=== PATIENT | female | born 1960 | race Caucasian/White ===

== ENCOUNTER 2017-04-23 04:53 | Inpatient (IN) | payer OTHER, BC ==
[2017-03-21 13:58] VITALS: BMI 36.0
--- NOTE | 2017-03-21 14:44 | PAT Medication Instructions ---
Service Date Mar 21, 2017. Current Home Medication List Cetirizine (Zyrtec), 10 MG PO HS Levothyroxine Sodium (Synthroid), 100 MCG PO QAM Loratadine (Claritin), 10 MG PO QAM Omeprazole (Omeprazole), 1 TAB PO QAM Oxymetazoline Hcl (Nasal [place]), Unknown Dose BAILEY UD PRN for PRN Potassium Ext Rel (Klor-Con), 20 MEQ PO BID Medication Instructions For Your Scheduled Surgery - Hold the following medications the morning of surgery: Loratadine (Claritin), 10 MG PO QAM Potassium Ext Rel (Klor-Con), 20 MEQ PO BID - Take the following medications the morning of surgery with a sip of water: Omeprazole (Omeprazole), 1 TAB PO QAM Levothyroxine Sodium (Synthroid), 100 MCG PO QAM Oxymetazoline Hcl (Nasal [place]), Unknown Dose BAILEY UD PRN for PRN - Take the following medications as scheduled the night before surgery: Cetirizine (Zyrtec), 10 MG PO HS Potassium Ext Rel (Klor-Con), 20 MEQ PO BID If you have any questions please call us at [phone] or [phone] or [phone]
--- NOTE | 2017-03-21 15:42 | DIAGNOSTIC IMAGING REPORT ---
CHEST PREADMISSION(PA/LAT) CLINICAL HISTORY: Preoperative evaluation. COMPARISON STUDY: No previous studies for comparison. FINDINGS: Abdominal surgical clips are noted. There is no pneumothorax or pleural effusion. Pulmonary vascularity is normal. Lung volumes are at the lower limits of normal. There is no consolidation to suggest pneumonia. Mild to moderate cardiomegaly is noted. IMPRESSION: 1. No acute cardiopulmonary findings. 2. Mild to moderate cardiomegaly. Electronically signed by: Carmelo Lopez M.D. 03/21/2017 3:40 PM Dictated Date/Time: 03/21/2017 3:40 PM
[2017-03-21 16:01] LABS: BASO % 0.6 %; BASO ABS # 0.06 K/uL (0-0.2); COMPLETE YES; EOS % 3.1 %; HEMATOCRIT 41.5 % (37-47); IG% 0.4 %; LYMPH % 34.4 %; LYMPH ABS # 3.19 K/uL (1.2-3.4); MEAN CELL VOLUME 91.8 fL (80-100); MEAN CORPUSCULAR HEMOGLOBIN 30.8 pg (25-34); MEAN CORPUSCULAR HGB CONC 33.5 g/dl (32-36); MEAN PLATELET VOLUME 10.1 fL (7.4-10.4); NEUT % 54.5 %; PLATELET COUNT 315 K/uL (130-400); RED BLOOD COUNT 4.52 M/uL (4.2-5.4); WHITE BLOOD COUNT 9.28 K/uL (4.8-10.8)
[2017-03-21 16:20] LABS: URINE APPEARANCE CLEAR (CLEAR); URINE BILIRUBIN NEG (NEG); URINE COLOR YELLOW; URINE NITRITE NEG (NEG); URINE PH 5.5 (4.5-7.5); URINE SPECIFIC GRAVITY 1.019 (1.000-1.030); UROBILINOGEN NEG (NEG); ZZUR CULT IF INDIC CLEAN CATCH NO
[2017-03-21 16:21] LABS: MANUAL MICROSCOPIC REQUIRED? NO; REVIEW REQ? NO
[2017-03-21 16:22] LABS: INR 0.9 (0.9-1.1); PARTIAL THROMBOPLASTIN RATIO 1.1; PROTHROMBIN TIME (PATIENT) 9.8 SECONDS (9.0-12.0)
[2017-03-21 16:24] LABS: BUN/CREATININE RATIO 11.9 (10-20); CREATININE 0.93 mg/dl (0.60-1.20); POTASSIUM 4.3 mmol/L (3.5-5.1)
[2017-03-22 08:23] LABS: ESTIMATED AVERAGE GLUCOSE 111 mg/dl; HA1C FLAG Normal (Normal)
--- NOTE | 2017-04-22 18:54 | HISTORY & PHYSICAL EXAMINATION ---
DATE OF ADMISSION: 04/23/2017 CHIEF COMPLAINT: Chronic right knee pain. HISTORY OF PRESENT ILLNESS: This is a 56-year-old female patient of Dr. Garcia who underwent a right total knee replacement in the recent past. AUTHOR CANCELS THIS DICTATION.
--- NOTE | 2017-04-22 18:57 | HISTORY & PHYSICAL EXAMINATION ---
DATE OF ADMISSION: 04/23/2017 CHIEF COMPLAINT: Bilateral knee pain. HISTORY OF PRESENT ILLNESS: This is a 56-year-old female patient of Dr. Quezada'carol complaining of bilateral knee pain, longstanding, now progressively getting worse. The patient has been diagnosed with end-stage osteoarthritis in both knees. Specifically, with a right knee which is worse. She has tried intraarticular injections, physical therapy, home exercise program, anti-inflammatories and the use of a brace. The patient has increased pain with weightbearing activities in her right knee and the pain does interfere with her activities of daily living. PAST MEDICAL HISTORY: Hypothyroidism, osteoarthritis, acid reflux, and obesity. SOCIAL HISTORY: Nonsmoker, nondrinker. FAMILY HISTORY: Noncontributory. REVIEW OF SYSTEMS: Bilateral knee pain, otherwise denies any shortness of breath, chest pain, nausea, vomiting or any other joint complaints. PAST SURGICAL HISTORY: Gallbladder, appendectomy, exploratory laparoscopy, tubal ligation, and left knee surgery. ALLERGIES: INCLUDE LATEX, PENICILLIN, AZITHROMYCIN AND APPLES. MEDICATIONS: Include: 1. Loratadine 10 mg daily. 2. Cetirizine 10 mg daily. 3. Potassium chloride 20 mEq 2 times a day. 4. Omeprazole 20 mg daily. 5. Levothyroxine 100 mcg daily. PHYSICAL EXAMINATION: GENERAL: Well-developed, well-nourished 56-year-old female in no acute distress. She is alert and oriented x3 and pleasant. HEENT: Normocephalic, atraumatic. Extraocular motions are intact. Pupils were equal and reactive to light. HEART: Regular rate and rhythm, no murmurs appreciated. LUNGS: Clear. ABDOMEN: Soft and nontender, bowel sounds are present. EXTREMITIES: Right knee reveals crepitation with passive range of motion. She has a limited range of motion of 0-120 degrees with a varus deformity. She has a positive effusion in the right knee. She has 5/5 strength. NEUROLOGIC: Neurovascularly, she is intact in her right lower extremity. Left knee reveals medial joint line tenderness with no effusion. DIAGNOSES: 1. Right knee end-stage osteoarthritis. 2. Left knee arthritis. 3. Hypothyroidism. 4. Acid reflux. 5. Obesity. PLAN: The patient was advised of her diagnosis. Indications, risks, benefits, and postop course have all been reviewed. The patient wishes to proceed with a right total knee arthroplasty and a left knee intraarticular injection. Necessary consent forms, preoperative testing and clearances will be obtained.
[2017-04-23] VITALS (9 sets, daily range): BP systolic 116–162; BP diastolic 69–112; PULSE 87–95; TEMP 36.6–36.9; O2SAT 93–97; Ht 165.1 cm; Wt 99.8 kg
[~2017-04-23] VITALS: Ht 165.1 cm; Wt 99.8 kg
[~2017-04-23 04:53] MED LIST: CETI10TA84 PO; CLR10 PO; LEVO100T PO; OMEP20TA PO; OXYM0.0592 NAE; POTA20TA16 PO
[2017-04-23] MEDS ORDERED: FAMOTIDINE 20 MG TAB PO SCH (06:00)
[2017-04-23] MEDS ORDERED: DEXAMETHASONE 4 MG TAB PO SCH (06:00)
[2017-04-23] MEDS ORDERED: LACTATED RINGER'S 1000ML 1,000 ML IV SCH (06:00)
[2017-04-23] MEDS ORDERED: LACTATED RINGER'S 1000ML 500 ML IV ONE (06:00)
[2017-04-23] MEDS ORDERED: VANCOMYCIN INJ 1,500 MG in SODIUM CHLORIDE 0.9% 500ML 500 ML IV SCH ×2 (06:00→18:00)
[2017-04-23] MEDS ORDERED: LACTATED RINGER'S 1000ML IV SCH (06:00)
[2017-04-23] MEDS ORDERED: METOCLOPRAMIDE HCL 10 MG TAB PO SCH (06:00)
[2017-04-23] MEDS ORDERED: ROPIVACAINE 5MG/ML 30 ML 150 MG, BUPIVACAINE/EPINEPHR 0.5% MPF 30 ML, KETOROLAC TROMETH... INFIL SCH ×7 (06:00)
[2017-04-23] MEDS ORDERED: CeleBREX 200 MG CAP PO SCH (06:00)
[2017-04-23] MEDS ORDERED: VANCOMYCIN 1GM/270ML NSS 270 ML IV SCH (06:00)
[2017-04-23] MEDS ORDERED: ACETAMINOPHEN 500 MG TAB PO SCH (06:00)
[2017-04-23] MEDS ORDERED: GABAPENTIN 300 MG CAP PO SCH (06:00)
[2017-04-23] MEDS ORDERED: ACET-1311 PO (06:17)
[2017-04-23] MEDS ORDERED: MIDAZOLAM HCL 1 MG/ML 2ML VIAL ONE ×2 (06:18→07:19)
[2017-04-23] MEDS ORDERED: PROPOFOL IV EMULSION 10 MG/ML 20 ML VIAL IV ONE ×3 (06:18→08:21)
[2017-04-23] MEDS ORDERED: LIDOCAINE HCL 2% 2 ML VIAL (20MG/ML) ONE (06:18)
[2017-04-23] MEDS ORDERED: FENTANYL CITRATE INJ 50 MCG/1 ML 2 ML VIAL ONE (06:18)
[2017-04-23] MEDS ORDERED: DIPH25CA65 PO (06:18)
[2017-04-23] MEDS ORDERED: BUPIVACAINE 0.5 % 5 MG/1 ML PF 10ML VIAL ONE (06:20)
[2017-04-23] MEDS ORDERED: ROPIVACAINE 0.5% 5 MG/ML 30 ML VIAL ONE (06:20)
[2017-04-23] MEDS: TRANEXAMIC ACID INJ 1,000 MG in SODIUM CHLORIDE 0.9% 100ML 100 ML IV SCH ×2 (06:30→07:02)
[2017-04-23] MEDS ORDERED: ORTHO JOINT ANESTHETIC ONE (06:45)
[2017-04-23] MEDS ORDERED: BACITRACIN 50000 UNIT VIAL ONE (06:45)
[2017-04-23] MEDS ORDERED: BUPIVACAINE 0.25% 30 ML VIAL ONE (07:03)
[2017-04-23] MEDS ORDERED: METHYLPREDNISOLONE ACETATE 80 MG/ML VIAL ONE (07:03)
--- NOTE | 2017-04-23 07:10 | History & Physical Bridge Note ---
H&P Re-Evaluation Bridge Note: I have examined the patient, reviewed the History & Physical and in the interval since the performance of the History & Physical I have noted the following changes of clinical significance: No changes noted
[2017-04-23] MEDS ORDERED: ONDANSETRON INJ 2 MG/ML 2 ML VIAL ONE (07:47)
[2017-04-23] MEDS ORDERED: HYDROmorphone INJ 2 MG/ML SYR/VIAL IV PRN (08:00)
[2017-04-23] MEDS ORDERED: ONDANSETRON INJ 2 MG/ML 2 ML VIAL IV PRN ×2 (08:00→09:15)
[2017-04-23] MEDS ORDERED: EpHEDrine SULFATE INJ 50 MG/ML AMP IV PRN (08:00)
[2017-04-23] MEDS ORDERED: ATROPINE SULFATE 0.1 MG/ML 5ML SYR IV PRN (08:00)
[2017-04-23] MEDS ORDERED: PHENYLEPHRINE 100MCG/ML 5ML SYR IV PRN (08:00)
[2017-04-23] MEDS ORDERED: EpHEDrine SULFATE INJ 50 MG/ML AMP ONE (08:08)
[2017-04-23] MEDS: POVIDONE-IODINE OP SOLN 30 ML BTL ONE ×2 (08:30→08:32)
--- NOTE | 2017-04-23 09:00 | [facility] Post Operative Brief Note ---
Immediate Operative Summary Operative Date Apr 23, 2017. Pre-Operative Diagnosis Right Knee End-Stage Osteoarthritis; Left Knee Arthritis Post-Operative Diagnosis Same as preoperative Procedure(s) Performed Right Total Knee Arthroplasty; Left Knee Injection Surgeon Dr. Jean Claude Quezada Real Estate Coordinator Surgeon(s) Chaitanya Ibarra PA-C Estimated Blood Loss 5ml Findings grade 4 djd oa medial compartment and patella varus Specimens A.) Right Knee Bone and Tissue Drains 2 hemovac Anesthesia spinal adductor block orthomix Complication(s) None Disposition Recovery Room / PACU
[2017-04-23] MEDS ORDERED: MAGNESIUM HYDROXIDE SUSP 30 ML UDC PO PRN (09:15)
[2017-04-23] MEDS ORDERED: MoRPHine SULFATE 2 MG/ML CARP IV PRN (09:15)
[2017-04-23] MEDS ORDERED: ZOLPIDEM TARTRATE 5 MG TAB PO PRN (09:15)
[2017-04-23] MEDS ORDERED: BISACODYL 10 MG SUPP PR PRN (09:15)
[2017-04-23] MEDS ORDERED: SOD PHOSPHATE/SOD BIPHOSPHATE ENEMA 132 ML BTL PR PRN (09:15)
--- NOTE | 2017-04-23 09:52 | DIAGNOSTIC IMAGING REPORT ---
RIGHT KNEE 2 VIEWS History: Right total knee arthroplasty. Degenerative arthritis. Postop. FINDINGS: The patient is status post a right total knee arthroplasty. The hardware is intact. No fracture or dislocation. Skin dimitri and surgical drains are in place. IMPRESSION: Right total knee arthroplasty. No evidence for hardware complication. Electronically signed by: Simone Sainz M.D. 04/23/2017 9:51 AM Dictated Date/Time: 04/23/2017 9:50 AM
--- NOTE | 2017-04-23 10:34 | Anesthesiology Progress Note ---
Anesthesia Post Op Note Date & Time Apr 23, 2017 at 10:33 Vital Signs Pain Intensity: 0 Vital Signs Past 12 Hours Date Time Temp Pulse Resp B/P (MAP) Pulse Ox O2 Delivery O2 Flow Rate FiO2 04/23/17 10:15 88 18 04/23/17 10:15 87 18 119/69 100 04/23/17 10:10 90 20 04/23/17 10:10 90 20 100 04/23/17 10:05 85 18 100 04/23/17 10:05 86 18 04/23/17 10:04 86 18 99 04/23/17 10:04 86 18 04/23/17 10:00 132/71 04/23/17 09:59 86 18 04/23/17 09:59 85 18 100 04/23/17 09:56 36.4 04/23/17 09:55 129/72 04/23/17 09:54 88 19 04/23/17 09:54 88 19 100 04/23/17 09:53 84 20 04/23/17 09:53 84 20 100 04/23/17 09:50 136/73 04/23/17 09:48 83 16 04/23/17 09:48 83 16 99 04/23/17 09:47 84 15 04/23/17 09:47 83 15 100 04/23/17 09:45 131/71 04/23/17 09:42 86 21 04/23/17 09:42 86 21 100 04/23/17 09:40 126/75 04/23/17 09:37 88 22 04/23/17 09:37 88 22 99 04/23/17 09:36 89 21 98 04/23/17 09:36 88 21 04/23/17 09:35 123/71 04/23/17 09:31 86 18 97 04/23/17 09:31 86 18 04/23/17 09:30 125/72 04/23/17 09:27 91 20 04/23/17 09:27 89 20 100 04/23/17 09:25 120/74 04/23/17 09:22 84 17 100 04/23/17 09:22 85 17 04/23/17 09:20 124/72 04/23/17 09:17 85 16 100 04/23/17 09:17 86 16 04/23/17 09:15 118/64 04/23/17 09:12 91 16 04/23/17 09:12 91 16 97/69 100 04/23/17 09:12 37.3 86 20 97/69 100 Oxymask 10 04/23/17 05:35 36.9 87 20 162/112 97 Room Air Notes Mental Status: alert / awake / arousable, participated in evaluation Pt Amnestic to Procedure: Yes Nausea / Vomiting: adequately controlled Pain: adequately controlled Airway Patency, RR, SpO2: stable & adequate BP & HR: stable & adequate Hydration State: stable & adequate Anesthetic Complications: no major complications apparent
--- NOTE | 2017-04-23 11:33 | OPERATIVE REPORT ---
DATE OF OPERATION: 04/23/2017 INDICATION FOR PROCEDURE: The patient is a 56-year-old female with chronic bilateral knee pain. The x-rays demonstrate she has bilateral knee osteoarthritis. She is close to bone on bone medial compartment in the both knees. She also has multiple loose bodies, right anterior lateral knee area. PREOPERATIVE DIAGNOSES: End-stage osteoarthritis, right knee with multiple loose bodies and end-stage osteoarthritis, left knee. POSTOPERATIVE DIAGNOSES: Same. PROCEDURES: Right total knee arthroplasty, excision multiple loose bodies, and left knee injections, steroids. SURGEON: Dr. Quezada. BIOMEDICAL SCIENTIST: DENTON Kelly. ANESTHESIA: Spinal, adductor nerve block and Orthomix. OPERATIVE PROCEDURE: The patient was taken to the operating room, anesthetized under spinal and regional block anesthetic. She was placed supine on the operating room table. Pneumatic tourniquet was placed on right upper thigh. Right lower extremity was prepped and draped in sterile fashion. She did not have any pseudolaxity with valgus stress and range of motion was 0-125 degrees. Right lower extremity was prepped and draped in usual sterile fashion. Left leg was elevated, exsanguinated with Esmarch bandage. Pneumatic tourniquet was raised to 325 mmHg. Anterior incision made across the right knee. Skin was incised sharply. Subcutaneous flaps were elevated. Incision was made through the medial retinaculum and carried up into the mid third of the quadriceps tendon and extended down to the medial tibial tubercle. Intra-articular findings demonstrated that she had some tricompartmental DJD, mainly medial compartment. She had [id number] in the anterior medial joint, femoral condyle and tibia. She had multiple loose bodies anterior to the lateral meniscus. Patella also had a grade 4 DJD along the whole medial facet extending into the central patellar area. To expose the knee, I excised the infrapatellar fat pad, some of the fat pad over the anterior femur for placement of the component in that area. I excised the cruciate ligaments, the meniscal remnants. She had fairly balanced knee, so we did not have to do any specific releases. The [employer] 2.0, total knee arthroplasty system was used using [employer] MRI templating. She was sized for a 4 femur, 3 tibia. The custom femoral cutting block was pinned in position and the distal femoral cut was made. Then the 5-in-1 cutting block was placed to a size 4 femur. Anterior, posterior and chamfer cuts were made. The knee was extended and a subperiosteal peel lateral release was performed around the patella. Patella width was measured and width was reproduced using a freehand cut technique and a 32 domed patellar component. Drill holes were made in the excess lateral facet was beveled off to prevent any impingement. The tibia was then subluxed and then the custom tibial cutting block was pinned in position and the proximal tibial cut was made. We assessed ligaments balance. We balanced in extension and flexion. The tibia was re-exposed and the trial 3 tibia was externally rotated in line with the tibial tubercle, pinned in position. The punch for the stem was used and then the 4 femoral trial was inserted, centered and the notch cutting devices were used, the collet was placed and then an 11 trial insert gave balanced ligaments through full range of motion, patella tracked centrally. Trials were removed. The anesthetic cocktail was injected per protocol. The knee was copiously irrigated with pulsatile lavage antibiotic solution and bacitracin. The final components were cemented with Simplex G cement. The final components were the 4 Oxinium posterior stabilized right femur. The 3 tibia and the 11 mm posterior stabilized high flex poly insert and a 32 patella. While the cement was curing, we did a Betadine soak protocol. Then the knee was copiously irrigated. Two drains were brought out laterally. The quadriceps tendon and medial retinaculum were closed with interrupted [id number] #1 Vicryl sutures. Subcutaneous tissues were closed with an interrupted 2-0 Vicryl sutures, skin closed with dimitri. Sterile dressings applied and the patient tolerated the procedure well. Prior to the knee replacement, we did inject left knee with 80 mg Depo-Medrol and 3 mL of Marcaine. DENTON Kelly was my heel sprayer first and he functioned as first beater through the entire procedure. He assisted in patient positioning, prepping, draping, leg positioning, soft tissue retraction, and performed the fascial, subcutaneous and skin closure and will participate in the postoperative care of the patient. I attest to the content of the Intraoperative Record and any orders documented therein. Any exception s are noted below.
[2017-04-23] MEDS ORDERED: MoRPHine SULFATE 4 MG/ML 1 ML CARP\\VIAL IV PRN (11:45)
--- NOTE | 2017-04-23 11:56 | Medical Consult ---
Consultation Date of Consultation: Apr 23, 2017. Attending Physician: Jean Claude Quezada M.D. Reason for Consultation: Post-op medical management History of Present Illness This is a 56yo F with a PMH of hypothyroidism and osteoarthritis who is POD#0 s/ p R total knee arthroplasty and L knee injection by Dr. Quezada. Patient has history of end-stage OA in her R knee and has failed conservative treatment measures such as PT, a brace, intraarticular injections and anti- inflammatories. Has less severe OA of the L knee, so pain is being managed with joint injections at this time. Patient is doing well post-operatively. Denies any fever, chills, lightheadedness, visual changes, CP, dyspnea, SOB, nausea, vomiting, calf pain or LE swelling. Denies any pain in R knee presently. Past Medical/Surgical History Medical Problems: (1) Allergic rhinitis Status: Chronic (2) GERD (gastroesophageal reflux disease) Status: Chronic (3) H/O tear of meniscus of knee joint Permanent Comment: Left s/p repair Status: Chronic (4) History of hypokalemia Status: Chronic (5) Hypothyroidism Status: Chronic (6) Left knee DJD Status: Chronic (7) Right knee DJD Status: Chronic Surgical Problems: (1) Hx of appendectomy Status: Chronic (2) Hx of cholecystectomy Status: Chronic (3) Hx of exploratory laparotomy Status: Chronic (4) Hx of tubal ligation Status: Chronic Family History FH: heart disease MOTHER Social History Smoking Status: Never Smoker Alcohol Use: occasionally (Endorses 1 glass of wine/month ) Marital Status: Housing Status: lives with family Occupation Status: employed Allergies Coded Allergies: Penicillins (Verified Allergy, Severe, "cant breathe", 04/23/17) Apple (Verified Allergy, Unknown, HIVES, 04/23/17) Azithromycin (Verified Allergy, Unknown, HIVES, 04/23/17) Dairy (Verified Allergy, Unknown, GI UPSET, DIZZY, 04/23/17) MILK, YOGURT, ICE CREAM Latex1 -Allergic Contact Dermititis (Verified Allergy, Unknown, RASH, 05/30) Uncoded Allergies: BANDAIDS (Allergy, Unknown, RED RING AROUND WHERE IT WAS, 03/21/17) Home Medications Reported Home Medications Medications Dose Route/Sig Max Daily Dose Days Date Category Benadryl Allergy (Diphenhydramine Hcl) 25 Mg Cap 25 Mg PO PRN 30 04/23/17 Reported Tylenol (Acetaminophen) 325 Mg Tab 650 Mg PO 04/23/17 Reported Nasal [place] (Oxymetazoline Hcl) Unknown Strength Spr 2 Sprays BAILEY BID PRN 03/21/17 Reported Synthroid (Levothyroxine Sodium) 100 Mcg Tab 100 Mcg PO QAM 03/21/17 Reported Omeprazole 20 Mg Tab 1 Tab PO QAM 90 03/21/17 Reported Klor-Con (Potassium Chloride) 20 Meq Tabcr 20 Meq PO BID 03/21/17 Reported Current Inpatient Medications Current Inpatient Medications Medications (Trade) Dose Ordered Sig/Luna Route Start Time Stop Time Status Last Admin Dose Admin Acetaminophen (Tylenol Tab) 1,000 mg PREOP PO 04/23/17 06:00 04/23/17 18:00 04/23/17 06:06 1,000 MG Celecoxib (CeleBREX CAP) 200 mg PREOP PO 04/23/17 06:00 04/23/17 18:00 04/23/17 06:04 200 MG Dexamethasone (Decadron Tab) 8 mg PREOP PO 04/23/17 06:00 04/23/17 18:00 04/23/17 06:05 8 MG Famotidine (Pepcid Tab) 20 mg PREOP PO 04/23/17 06:00 04/23/17 18:00 04/23/17 06:05 20 MG Gabapentin (Neurontin Cap) 600 mg PREOP PO 04/23/17 06:00 04/23/17 18:00 04/23/17 06:05 600 MG Metoclopramide HCl (Reglan Tab) 10 mg PREOP PO 04/23/17 06:00 04/23/17 18:00 04/23/17 06:06 10 MG Tranexamic Acid 1000 mg/Sodium Chloride 110 ml @ 660 mls/hr TODAY@06,0630 IV 04/23/17 06:00 04/23/17 18:00 04/23/17 07:02 660 MLS/HR Vancomycin HCl 1500 mg/Sodium Chloride 530 ml @ 200 mls/hr PREOP IV 04/23/17 06:00 04/23/17 18:00 04/23/17 06:00 200 MLS/HR Hydromorphone HCl (Dilaudid Inj) 0.5 mg Q5M PRN IV 04/23/17 08:00 04/23/17 13:00 Ondansetron HCl (Zofran Inj) 4 mg ONE PRN IV 04/23/17 08:00 04/23/17 13:00 Ephedrine Sulfate (EpHEDrine SULFATE INJ) 5 mg Q5M PRN IV 04/23/17 08:00 04/23/17 13:00 Atropine Sulfate (Atropine Sulfate 0.1MG/Ml Inj) 0.5 mg Q1M PRN IV 04/23/17 08:00 04/23/17 13:00 Phenylephrine HCl (Kevin-Synephrine 500MCG/5ML Syr) 100 mcg Q5M PRN IV 04/23/17 08:00 04/23/17 13:00 Cetirizine HCl (zyrTEC TAB) 10 mg HS PO 04/23/17 21:00 05/23/17 20:59 Levothyroxine Sodium (Synthroid Tab) 100 mcg DAILYBB PO 04/24/17 06:00 05/24/17 05:59 Potassium Chloride (Klor-Con Tab) 20 meq BID PO 04/23/17 21:00 05/23/17 20:59 Potassium Chloride/Dextrose/ Sod Cl 1,000 ml @ 100 mls/hr Q10H IV 04/23/17 12:00 04/24/17 09:09 Vancomycin HCl 1500 mg/Sodium Chloride 530 ml @ 200 mls/hr Q12H IV 04/23/17 18:00 04/23/17 20:38 Celecoxib (CeleBREX CAP) 200 mg BID PO 04/23/17 21:00 05/23/17 20:59 Oxycodone HCl (Roxicodone Immediate Rel Tab) 1 TABLET FOR PAIN RATING... Q4H PRN PO 04/23/17 09:15 05/07/17 09:14 Morphine Sulfate (MoRPHine SULFATE INJ) 2 mg Q2H PRN IV 04/23/17 09:15 05/07/17 09:14 Acetaminophen (Tylenol Tab) 1,000 mg Q8 PO 04/23/17 14:00 05/23/17 13:59 Magnesium Hydroxide (Milk Of Magnesia Susp) 30 ml Q6H PRN PO 04/23/17 09:15 05/23/17 09:14 Bisacodyl (Dulcolax Supp) 10 mg DAILY PRN DE 04/23/17 09:15 05/23/17 09:14 Sodium Biphosphate/ Sodium Phosphate (Fleet Enema) 132 ml DAILY PRN DE 04/23/17 09:15 05/23/17 09:14 Docusate Sodium (coLACE CAP) 100 mg BID PO 04/23/17 21:00 05/23/17 20:59 Diphenhydramine HCl (Benadryl Cap) 25 mg Q8H PRN PO 04/23/17 09:15 05/23/17 09:14 Zolpidem Tartrate (Ambien Tab) 5 mg HSZ PRN PO 04/23/17 09:15 05/23/17 09:14 Multivitamins (Multivitamin Tab) 1 tab QAM PO 04/24/17 09:00 05/24/17 08:59 Ondansetron HCl (Zofran Inj) 4 mg Q6H PRN IV 04/23/17 09:15 05/23/17 09:14 Pantoprazole Sodium (Protonix Tab) 40 mg QAM PO 04/24/17 09:00 05/24/17 08:59 Tramadol HCl (Ultram Tab) 1 tablet for pain rating... Q4H PRN PO 04/23/17 09:15 05/23/17 09:14 Aspirin (Ecotrin Tab) 81 mg BID PO 04/23/17 21:00 05/23/17 20:59 Morphine Sulfate (MoRPHine SULFATE INJ) 4 mg Q2H PRN IV 04/23/17 11:45 05/07/17 11:44 Review of Systems Constitutional- See HPI Eyes- no acute visual changes ENT- no sinus drainage; no pharyngitis Pulmonary- See HPI Cardiac- See HPI GI- no nausea, no vomiting, no diarrhea, no melena, no hematochezia - no dysuria, no hematuria Musculoskeletal-See HPI Derm- no rashes, no new skin lesions, no changing skin lesions Hematologic- no unusual bruising, no unusual bleeding Lymphatics- no adenopathy Endocrine- no polyuria or polydipsia; no heat or cold intolerance Neuro- no headaches, no focal neurologic symptoms Psych- no anxiety, no depression Physical Exam Date Time Temp Pulse Resp B/P (MAP) Pulse Ox O2 Delivery O2 Flow Rate FiO2 04/23/17 11:33 36.7 88 16 127/82 (97) 94 Nasal Cannula 2.0 04/23/17 11:02 90 18 130/81 (97) 94 Nasal Cannula 2.0 04/23/17 10:30 36.8 90 16 118/75 (89) 93 Nasal Cannula 2.0 04/23/17 10:30 Nasal Cannula 2.0 04/23/17 10:30 94 Nasal Cannula 2.0 04/23/17 10:15 88 18 04/23/17 10:15 87 18 119/69 100 04/23/17 10:10 90 20 04/23/17 10:10 90 20 100 04/23/17 10:05 85 18 100 04/23/17 10:05 86 18 04/23/17 10:04 86 18 99 04/23/17 10:04 86 18 04/23/17 10:00 132/71 04/23/17 09:59 86 18 04/23/17 09:59 85 18 100 04/23/17 09:56 36.4 04/23/17 09:55 129/72 04/23/17 09:54 88 19 04/23/17 09:54 88 19 100 04/23/17 09:53 84 20 04/23/17 09:53 84 20 100 04/23/17 09:50 136/73 04/23/17 09:48 83 16 04/23/17 09:48 83 16 99 04/23/17 09:47 84 15 04/23/17 09:47 83 15 100 04/23/17 09:45 131/71 04/23/17 09:42 86 21 04/23/17 09:42 86 21 100 04/23/17 09:40 126/75 04/23/17 09:37 88 22 04/23/17 09:37 88 22 99 04/23/17 09:36 89 21 98 04/23/17 09:36 88 21 04/23/17 09:35 123/71 04/23/17 09:31 86 18 97 04/23/17 09:31 86 18 04/23/17 09:30 125/72 04/23/17 09:27 91 20 04/23/17 09:27 89 20 100 04/23/17 09:25 120/74 04/23/17 09:22 84 17 100 04/23/17 09:22 85 17 04/23/17 09:20 124/72 04/23/17 09:17 85 16 100 04/23/17 09:17 86 16 04/23/17 09:15 118/64 04/23/17 09:12 91 16 04/23/17 09:12 91 16 97/69 100 04/23/17 09:12 37.3 86 20 97/69 100 Oxymask 10 04/23/17 05:35 36.9 87 20 162/112 97 Room Air General Appearance: no apparent distress, + obese Head: normocephalic, atraumatic Eyes: normal inspection, PERRL, sclerae normal (Conjunctiva and eyelids normal) ENT: normal ENT inspection (Nares, mouth, pharynx without erythema or lesions. ), hearing grossly normal Neck: supple, no adenopathy, thyroid normal, trachea midline Respiratory/Chest: chest non-tender, lungs clear, normal breath sounds, no respiratory distress, no accessory muscle use Cardiovascular: regular rate, rhythm, no edema, no murmur Abdomen/GI: normal bowel sounds, non tender, soft, no organomegaly (No hepatomegaly or splenomegaly) Back: normal inspection Extremities/Musculoskelatal: normal inspection, no calf tenderness, no pedal edema, + pertinent finding (R knee with dressing in place. Clean, dry intact. Ice on top. Hemovac visualized with sanguinous drainage. SCDs in place.) Neurologic/Psych: digital field service technician II-XII nml as tested, no motor/sensory deficits, alert, normal mood/affect, oriented x 3 Skin: normal color, warm/dry, no rash Laboratory Results Pre-operative testing: Item Value Date Time White Blood Count 9.28 K/uL 03/21/17 1500 Hemoglobin 13.9 g/dL 03/21/17 1500 Platelet Count 315 K/uL 03/21/17 1500 Prothrombin Time 9.8 SECONDS 03/21/17 1500 Prothromb Time International Ratio 0.9 03/21/17 1500 Activated Partial Thromboplast Time 28.5 SECONDS 03/21/17 1500 Sodium Level 140 mmol/L 03/21/17 1500 Potassium Level 4.3 mmol/L 03/21/17 1500 Chloride Level 105 mmol/L 03/21/17 1500 Creatinine 0.93 mg/dl 03/21/17 1500 Random Glucose 116 mg/dl H 03/21/17 1500 Blood Urea Nitrogen 11 mg/dl 03/21/17 1500 Assessment & Plan This is a 56yo F with a PMH of hypothyroidism and osteoarthritis who is POD#0 s/ p R total knee arthroplasty and L knee injection by Dr. Quezada. S/p R TKA and L knee injection: -POD#0 s/p with Damien -Pt is doing well post-operatively -Per ortho for pain control, wound care, anticoagulation and activities -Monitor H&H, continue incentive spirometry, PT/OT when appropriate H/o hypokalemia: -Unclear etiology -AM dose of 20mEg KCl held prior to surgery -BMP pending -Continue home dose of 20mEq Kcl BID if appropriate Hypothyroidism: -Stable -Continue synthroid GERD: -Continue PPI Allergic rhinitis: -H/o recurrent sinusitis 2/2 allergies -No symptoms right now -Continue home dose of nasal spray and Benadryl tomorrow DVT Ppx: SCDs, per ortho Code status: FULL PCP: Rupinder Valle) Dispo: Plan to return home once medically stable SUPERVISING PHYSICIAN'S ADDENDUM Record reviewed. Patient interviewed and examined. Care coordinated with Syeda Byrne PA-C. Please refer to her documentation for patient's history. Briefly, 56 YO female with history of hypothyroidism and other problems. TKA performed today. Doing well postoperatively. No chest pain. No cough or dyspnea. No nausea or vomiting. Postop pain well-controlled. EXAM: General- no distress VS- as noted Lungs- clear Heart- RRR Abdomen- + BS, soft, nontender Extremities- SCD's applied Neuro- alert DATA: Lab studies as noted. ASSESSMENT AND PLAN: S/P TKA Doing well postop. HYPOTHYROIDISM Continue levothyroxine. CHRONIC HYPOKALEMIA Mechanism unclear. Continue KCl. Please refer to DENTON Byrne's documentation for discussion of other issues. Thank you for this consultation. We will follow the patient with you during their hospital stay. Dr. Gutierrez will be rounding starting 04/24. You can reach a member of the [facility] Medicine Team 03/02 via pager @ [phone]. You can reach me via cell @ [phone]. Sundar Rodriguez MD . Additional Copies To Tomas Bucio PA-C
[2017-04-23] MEDS: D5W AND 1/2NSS + 20MEQ KCL 1,000 ML IV SCH ×2 (12:27→21:14)
[2017-04-23 12:39] LABS: BUN/CREATININE RATIO 7.7 (10-20); CALCIUM 9.6 mg/dl (8.5-10.1); CREATININE 0.96 mg/dl (0.60-1.20); POTASSIUM 3.9 mmol/L (3.5-5.1)
[2017-04-23] MEDS: ACETAMINOPHEN 500 MG TAB PO SCH ×2 (13:45→21:55)
[2017-04-23] MEDS: OXYCODONE HCL IR 5 MG TAB (IMMEDIATE RELEASE) PO PRN (16:29)
[2017-04-23] MEDS ORDERED: CETIRIZINE HCL 10 MG TAB PO SCH (21:00)
[2017-04-23] MEDS: ASPIRIN 81 MG ECTAB PO SCH (21:11)
[2017-04-23] MEDS: CeleBREX 200 MG CAP PO SCH (21:12)
[2017-04-23] MEDS: DOCUSATE SODIUM 100 MG CAP PO SCH (21:12)
[2017-04-23] MEDS: POTASSIUM CHLORIDE 20 MEQ TABCR PO SCH (21:13)
[2017-04-24] MEDS: OXYCODONE HCL IR 5 MG TAB (IMMEDIATE RELEASE) PO PRN ×4 (00:09→20:01)
[2017-04-24 03:11] VITALS: BP 106/68; PULSE 80; TEMP 36.6; O2SAT 95
[2017-04-24] MEDS: LEVOTHYROXINE 100 MCG TAB PO SCH (05:17)
[2017-04-24] MEDS: D5W AND 1/2NSS + 20MEQ KCL 1,000 ML IV SCH (05:18)
[2017-04-24] MEDS: ACETAMINOPHEN 500 MG TAB PO SCH ×3 (05:18→21:44)
[2017-04-24 06:29] LABS: HEMATOCRIT 36.7 % (37-47); MEAN CELL VOLUME 92.4 fL (80-100); MEAN CORPUSCULAR HEMOGLOBIN 29.7 pg (25-34); MEAN CORPUSCULAR HGB CONC 32.2 g/dl (32-36); MEAN PLATELET VOLUME 10.4 fL (7.4-10.4); PLATELET COUNT 263 K/uL (130-400); RED BLOOD COUNT 3.97 M/uL (4.2-5.4); WHITE BLOOD COUNT 22.44 K/uL (4.8-10.8)
[2017-04-24 07:05] LABS: BUN/CREATININE RATIO 10.8 (10-20); CALCIUM 9.4 mg/dl (8.5-10.1); CREATININE 0.91 mg/dl (0.60-1.20); POTASSIUM 4.9 mmol/L (3.5-5.1)
[2017-04-24 07:52] VITALS: BP 121/77; PULSE 71; TEMP 36.6; O2SAT 97
[2017-04-24] MEDS: MULTIVITAMIN TAB PO SCH (08:07)
[2017-04-24] MEDS: ASPIRIN 81 MG ECTAB PO SCH ×2 (08:07→20:03)
[2017-04-24] MEDS: DOCUSATE SODIUM 100 MG CAP PO SCH ×2 (08:07→20:03)
[2017-04-24] MEDS: PANTOprazole SOD 40 MG TAB PO SCH (08:07)
[2017-04-24] MEDS: POTASSIUM CHLORIDE 20 MEQ TABCR PO SCH ×2 (08:07→20:02)
[2017-04-24] MEDS: CeleBREX 200 MG CAP PO SCH ×2 (08:08→20:03)
--- NOTE | 2017-04-24 08:14 | Anesthesiology Progress Note ---
Anesthesia Post Op Note Date & Time Apr 24, 2017 at 08:13 Vital Signs Pain Intensity: 6.0 Vital Signs Past 12 Hours Date Time Temp Pulse Resp B/P (MAP) Pulse Ox O2 Delivery O2 Flow Rate FiO2 04/24/17 07:52 36.6 71 16 121/77 (92) 97 Room Air 04/24/17 07:27 Room Air 04/24/17 03:11 36.6 80 16 106/68 (81) 95 Room Air 04/23/17 23:50 Room Air 04/23/17 22:59 36.7 87 17 119/75 (90) 95 Room Air Notes Mental Status: alert / awake / arousable, participated in evaluation Pt Amnestic to Procedure: Yes Nausea / Vomiting: adequately controlled Pain: adequately controlled Airway Patency, RR, SpO2: stable & adequate BP & HR: stable & adequate Hydration State: stable & adequate Neuraxial Anesthesia: was administered, sensory block resolved Anesthetic Complications: no major complications apparent
[2017-04-24] MEDS: TRAMADOL HCL 50 MG TAB PO PRN ×2 (08:41→21:43)
[2017-04-24] MEDS ORDERED: LORATADINE 10 MG TAB PO SCH (09:00)
--- NOTE | 2017-04-24 10:06 | Orthopedic Progress Note ---
Orthopedic Progress Note Date of Service Apr 24, 2017. Subjective Post OP Day: 1 Reports: feeling well, pain controlled w PO medications, Denies: complaints, chest pain, SOB, nausea / vomiting, light headedness, calf pain Objective calves soft nontender, N/V intact, capillary refill less than 2 sec., dressing C /D/I, A&O x3, toes mobile Date Time Temp Pulse Resp B/P (MAP) Pulse Ox O2 Delivery O2 Flow Rate FiO2 04/24/17 07:52 36.6 71 16 121/77 (92) 97 Room Air 04/24/17 07:27 Room Air 04/24/17 03:11 36.6 80 16 106/68 (81) 95 Room Air 04/23/17 23:50 Room Air 04/23/17 22:59 36.7 87 17 119/75 (90) 95 Room Air 04/23/17 18:49 36.7 95 18 117/74 (88) 95 Room Air 04/23/17 15:20 Room Air 04/23/17 15:19 36.6 92 18 116/69 (85) 95 Nasal Cannula 2.0 04/23/17 13:33 94 16 133/82 (99) 96 Nasal Cannula 2.0 04/23/17 12:33 89 18 122/79 (93) 95 Nasal Cannula 2.0 04/23/17 11:33 36.7 88 16 127/82 (97) 94 Nasal Cannula 2.0 04/23/17 11:02 90 18 130/81 (97) 94 Nasal Cannula 2.0 04/23/17 10:30 36.8 90 16 118/75 (89) 93 Nasal Cannula 2.0 04/23/17 10:30 Nasal Cannula 2.0 04/23/17 10:30 94 Nasal Cannula 2.0 04/23/17 10:15 88 18 04/23/17 10:15 87 18 119/69 100 04/23/17 10:10 90 20 04/23/17 10:10 90 20 100 04/23/17 10:05 85 18 100 04/23/17 10:05 86 18 Laboratory Results 24 Hours: Test 04/24/17 05:29 Hematocrit 36.7 % Hemoglobin 11.8 g/dL Assessment & Plan Assessment: POD #1, Right TKA Plan: PT/ OT DVT proph- ASA D/C planning OPPT Inhouse Planning Pain Management: Celebrex, Ultram, Morphine, PO Tylenol, Oxy IR DVT Prophylaxis: TEDs, SCDs, ASA Discharge Planning Discharge Planning: home with oppt Pain Management: Celebrex, PO Tylenol, Oxy IR DVT Prophylaxis: TEDs, ASA Therapy: Physical Therapy, Occupational Therapy
[2017-04-24 11:09] VITALS: BP 133/78; PULSE 74; TEMP 36.5; O2SAT 94
[2017-04-24 15:19] VITALS: BP 118/72; PULSE 65; TEMP 36.6; O2SAT 97
--- NOTE | 2017-04-24 18:24 | Progress Note ---
Internal Med Progress Note Date of Service: Apr 24, 2017. Provider Documentation: SUBJECTIVE: sitting on the chair comfortably afebrile ambulated with PT no fevers no sob OBJECTIVE: Vital Signs-as noted below Exam: General-alert and awake. Not in distress ENT-normal hearing Neck-no neck masses Lungs-cta b/l mild b/l wheezing present no crackles Heart-s1 and s2 heard regular rate and rhythm no murmurs Abdomen-soft bowel sounds present non tender no distension Extremities-no erythema s/p right TKA- dressing and drain intact Neuro-alert and awake moves extremities Lab data as noted below. ASSESSMENT & PLAN: This is a 56yo F with a PMH of hypothyroidism and osteoarthritis who is POD#1 s/ p R total knee arthroplasty and L knee injection by Dr. Quezada. S/p R TKA and L knee injection: POD#1 s/p with Damien management as per ortho. H/o hypokalemia: replaced to Continue home dose of 20mEq Kcl BID if appropriate Hypothyroidism: on Synthroid GERD: on PPI Allergic rhinitis: H/o recurrent sinusitis 2/2 allergies asymptomatic currently home dose of nasal spray DVT PROPHYLAXIS as per ortho DISPOSITION as per ortho Vital Signs: Date Time Temp Pulse Resp B/P (MAP) Pulse Ox O2 Delivery O2 Flow Rate FiO2 04/24/17 15:19 36.6 65 18 118/72 (87) 97 Room Air 04/24/17 11:09 36.5 74 16 133/78 (96) 94 Room Air 04/24/17 07:52 36.6 71 16 121/77 (92) 97 Room Air 04/24/17 07:27 Room Air 04/24/17 03:11 36.6 80 16 106/68 (81) 95 Room Air 04/23/17 23:50 Room Air 04/23/17 22:59 36.7 87 17 119/75 (90) 95 Room Air 04/23/17 18:49 36.7 95 18 117/74 (88) 95 Room Air Lab Results: Results Past 24 Hours Test 04/24/17 05:29 Range/Units White Blood Count 22.44 4.8-10.8 K/uL Red Blood Count 3.97 4.2-5.4 M/uL Hemoglobin 11.8 12.0-16.0 g/dL Hematocrit 36.7 37-47 % Mean Corpuscular Volume 92.4 80-100 fL Mean Corpuscular Hemoglobin 29.7 25-34 pg Mean Corpuscular Hemoglobin Concent 32.2 32-36 g/dl RDW Standard Deviation 45.6 36.4-46.3 fL RDW Coefficient of Variation 13.5 11.5-14.5 % Platelet Count 263 130-400 K/uL Mean Platelet Volume 10.4 7.4-10.4 fL Sodium Level 140 136-145 mmol/L Potassium Level 4.9 3.5-5.1 mmol/L Chloride Level 108 98-107 mmol/L Carbon Dioxide Level 24 21-32 mmol/L Anion Gap 8.0 3-11 mmol/L Blood Urea Nitrogen 10 7-18 mg/dl Creatinine 0.91 0.60-1.20 mg/dl Est Creatinine Clear Calc Drug Dose 78.8 ml/min Estimated GFR () 80.6 Estimated GFR (Non- 69.5 BUN/Creatinine Ratio 10.8 10-20 Random Glucose 163 70-99 mg/dl Calcium Level 9.4 8.5-10.1 mg/dl
[2017-04-24 23:10] VITALS: BP 120/78; PULSE 77; TEMP 36.4; O2SAT 95
[2017-04-25 05:39] LABS: HEMATOCRIT 35.2 % (37-47); MEAN CELL VOLUME 93.9 fL (80-100); MEAN CORPUSCULAR HEMOGLOBIN 29.9 pg (25-34); MEAN CORPUSCULAR HGB CONC 31.8 g/dl (32-36); MEAN PLATELET VOLUME 9.7 fL (7.4-10.4); PLATELET COUNT 251 K/uL (130-400); RED BLOOD COUNT 3.75 M/uL (4.2-5.4); WHITE BLOOD COUNT 17.84 K/uL (4.8-10.8)
[2017-04-25] MEDS: LEVOTHYROXINE 100 MCG TAB PO SCH (05:40)
[2017-04-25] MEDS: ACETAMINOPHEN 500 MG TAB PO SCH ×2 (05:40→13:59)
[2017-04-25 05:58] VITALS: BP 121/77; PULSE 69; TEMP 36.5; O2SAT 99
[2017-04-25 06:09] LABS: BUN/CREATININE RATIO 19.5 (10-20); CALCIUM 8.9 mg/dl (8.5-10.1); CREATININE 0.98 mg/dl (0.60-1.20); POTASSIUM 4.6 mmol/L (3.5-5.1)
[2017-04-25] MEDS: ASPIRIN 81 MG ECTAB PO SCH (07:03)
[2017-04-25] MEDS: PANTOprazole SOD 40 MG TAB PO SCH (07:03)
[2017-04-25] MEDS: OXYCODONE HCL IR 5 MG TAB (IMMEDIATE RELEASE) PO PRN ×2 (07:03→13:59)
[2017-04-25] MEDS: MULTIVITAMIN TAB PO SCH (07:03)
[2017-04-25] MEDS: DOCUSATE SODIUM 100 MG CAP PO SCH (07:03)
[2017-04-25] MEDS: POTASSIUM CHLORIDE 20 MEQ TABCR PO SCH (07:03)
[2017-04-25] MEDS: CeleBREX 200 MG CAP PO SCH (07:04)
--- NOTE | 2017-04-25 08:24 | Orthopedic Progress Note ---
Orthopedic Progress Note Date of Service Apr 25, 2017. Subjective Post OP Day: 2 Reports: feeling well, pain controlled w PO medications, Denies: complaints, chest pain, SOB, nausea / vomiting, light headedness, calf pain Objective calves soft nontender, N/V intact, capillary refill less than 2 sec., incision C /D/I, A&O x3, toes mobile Date Time Temp Pulse Resp B/P (MAP) Pulse Ox O2 Delivery O2 Flow Rate FiO2 04/25/17 07:15 Room Air 04/25/17 05:58 36.5 69 16 121/77 (92) 99 Room Air 04/24/17 23:10 36.4 77 16 120/78 (92) 95 Room Air 04/24/17 19:50 Room Air 04/24/17 15:19 36.6 65 18 118/72 (87) 97 Room Air 04/24/17 11:09 36.5 74 16 133/78 (96) 94 Room Air Laboratory Results 24 Hours: Test 04/25/17 05:20 Hematocrit 35.2 % Hemoglobin 11.2 g/dL Assessment & Plan Assessment: POD #2, Right TKA Plan: PT/ OT DVT proph- ASA D/C planning OPPT home today Inhouse Planning Pain Management: Celebrex, Ultram, Morphine, PO Tylenol, Oxy IR DVT Prophylaxis: TEDs, SCDs, ASA Discharge Planning Discharge Planning: home with oppt Pain Management: Celebrex, PO Tylenol, Oxy IR DVT Prophylaxis: TEDs, ASA Therapy: Physical Therapy, Occupational Therapy
[2017-04-25] MEDS ORDERED: ACET-24 PO (08:27)
[2017-04-25] MEDS ORDERED: ASPEC81 PO (08:27)
[2017-04-25] MEDS ORDERED: RXC5 PO (08:27)
[2017-04-25] MEDS ORDERED: CLB200 PO (08:27)
--- NOTE | 2017-04-25 08:28 | Discharge Instructions ---
Discharge Instructions Date of Service Apr 25, 2017. Admission Reason for Admission: Right Knee Degenerative Joint Disease Discharge Discharge Diagnosis / Problem: Right TKA Discharge Goals Goal(s): Improve function Activity Recommendations Activity Limitations: as noted below . Instructions / Follow-Up Instructions / Follow-Up ACTIVITY RECOMMENDATIONS: SELF CARE INSTRUCTIONS AFTER TOTAL KNEE REPLACEMENT A. You may need to continue a physical therapy program after discharge from the hospital. There are several options available to you. Your doctor will assist you in selecting the best one for you. 1. An out-patient facility 2 to 3 times a week for therapy or home therapy. 2. Continue working on all exercises taught to you in the hospital. Your goals should be to increase bending of your knee to 90 degrees and beyond and to fully straighten your knee. B. You may progress at your own pace from walking with a walker or crutches to a cane; then to no assistive devices. C. Make walking a part of your daily routine. Be up as much as comfortable with rest periods throughout the day. Rest with leg elevation is very important. Use the ice wrap frequently for the first 3-4 weeks. D. There are no restrictions on activities. You may ride in a car, shop, participate in business process modeler and all social activities. E. Wear the long elastic stockings (JUSTINE hose) 20 hours a day for 2 weeks after surgery. They can be removed several times a day for laundering and for a bath. F. You may shower, no tub baths until cleared by your doctor. SPECIAL CARE INSTRUCTIONS: VERY IMPORTANT TO READ AND REVIEW A. There are a few signs you need to watch for after you are home. Call [facility] if you notice any of the followin. Increased severe knee pain. Some pain is expected especially when you exercise. 2. Increased swelling in your leg or knee; pain or swelling of the calf muscle in either lower leg. 3. Any fluid drainage from the incision. 4. Shortness of breath or chest pain. B. Please call [facility] at if you have any concerns or questions about your operation or recovery. The doctor or his nurse will return your call promptly. C. You must take antibiotics before dental work, bladder, bowel or other surgery. Your doctor will provide you with a permanent care to carry describing this precaution. IMPORTANT: * REMEMBER TO TAKE ASPIRIN, 81 MG, TWICE DAILY FOR 4 WEEKS UNLESS OTHERWISE DIRECTED. THIS IS YOUR BLOOD THINNER. * HIGH RISK PATIENTS MAY BE PRESCRIBED A STRONGER BLOOD THINNER. THIS WILL BE PROVIDED AT DISCHARGE. * CALL IF INCREASED PAIN, REDNESS, DRAINAGE OR FEVER GREATER THAT 101. * WEAR JUSTINE HOSE 20 HOURS PER DAY FOR 2 WEEKS. * YOU MAY HAVE A LARGE BAND-AID LIKE DRESSING (SILVERON). THIS WILL REMAIN ON YOUR INCISION FOR 7 DAYS, THEN CAN BE REMOVED. IF INCISION IS LEAKING THROUGH DRESSING, CALL THE OFFICE . FOLLOW UP VISIT: If appointment is not already scheduled: Please call [facility] to make a follow-up appointment for 2 weeks after your surgery at . Current Hospital Diet Patient's current hospital diet: Regular Diet Discharge Diet Recommended Diet: Regular Diet Procedures Procedures Performed: Right Total Knee Arthroplasty; Left Knee Injection Pending Studies Studies pending at discharge: no Laboratory Results Hemoglobin A1c Test 03/21/17 15:00 Range/Units Estimated Average Glucose 111 mg/dl Hemoglobin A1c 5.5 4.5-5.6 % Medical Emergencies . Who to Call and When: Medical Emergencies: If at any time you feel your situation is an emergency, please call 911 immediately. . Non-Emergent Contact Non-Emergency issues call your: Primary Care Provider . "Provider Documentation" section prepared by Chaitanya Ibarra. . VTE Core Measure Inpt VTE Proph given/why not?: Other Anticoagulation (asa), T.E.D. Stockings, SCD's [place] Drug Monitoring Program Search Results: patient reviewed within database, no issues identified
[2017-04-25 09:39] VITALS: BP 145/92; PULSE 69; O2SAT 99
[2017-04-25 12:40] VITALS: BP 145/92; PULSE 69; TEMP 36.5; O2SAT 99
== END 2017-04-25 15:30 | disposition home or self-care (01) | DRG 470 ==
LOC: C.ACU 04:53 → C.3E 07:02 → ENRESERV 09:55
PROVIDERS: ADMIT Orthopaedic Surgery Sports Medicine; ATTEND Orthopaedic Surgery Sports Medicine
PROC: 0SRC0J9 Replacement of Right Knee Joint with Synthetic Substitute, Cemented, Open Approach (ICD-10-PCS; principal; 2017-04-23 07:00)
DX: M17.11 Unilateral primary osteoarthritis, right knee (principal); E03.9 Hypothyroidism, unspecified; K21.9 Gastro-esophageal reflux disease without esophagitis; E66.9 Obesity, unspecified; Z98.51 Tubal ligation status; Z68.36 Body mass index [BMI] 36.0-36.9, adult